=== PATIENT | female | born 1955 | race Caucasian/White ===

== ENCOUNTER → 2016-12-13 | Outpatient (CLI) | payer OTHER ==
[~2016-12-13] MED LIST: FLEXERIL PO; HYDR-3240 PO; LEVO200T PO; NAPROXEN PO; TRAM50TA2 PO
== END | disposition home or self-care (01) ==
LOC: CFH 11:58 → EDSTATUS 12:30
PROVIDERS: ATTEND Internal Medicine Endocrinology, Diabetes & Metabolism
DX: E04.2 Nontoxic multinodular goiter (principal)
CPT/HCPCS: 76536